=== PATIENT | male | born 1950 | race Caucasian/White ===

== ENCOUNTER 2023-01-23 12:22 | Emergency (ER) | payer OTHER, MEDICAID ==
[~2023-01-23] VITALS: Ht 152.4 cm; Wt 78.5 kg
[2023-01-23 12:56] VITALS: BP_SYST 137
[2023-01-23] MEDS ORDERED: LIDO1ADH77 TP (14:56)
[2023-01-23] MEDS ORDERED: ACET-2634 PO (14:56)
== END 2023-01-23 15:13 | disposition home or self-care (01) ==
LOC: SED 12:22
DX: M54.10 Radiculopathy, site unspecified (principal); R20.2 Paresthesia of skin; M54.2 Cervicalgia; R51.9 Headache, unspecified; Z79.899 Other long term (current) drug therapy
CPT/HCPCS: 72125-TC; 76376; 93005; 99284

== ENCOUNTER 2023-03-12 14:50 | Emergency (ER) | payer OTHER ==
[~2023-03-12] VITALS: Ht 152.4 cm; Wt 78.0 kg
[~2023-03-12 14:50] MED LIST: ACET-2634 PO; LIDO1ADH77 TP
[2023-03-12 16:14] VITALS: BP_SYST 127; PULSE 86; RESP 18; TEMP 98.2; O2SAT 97
[2023-03-12 16:57] LABS: BASOPHILS # (AUTO) 0.1 K/uL (0.0-0.2); BASOPHILS % (AUTO) 0.6 % (0.0-2.0); HEMATOCRIT 44.8 % (36-54); HEMOGLOBIN 14.5 g/dL (14.0-18.0); LYMPHOCYTES % (AUTO) 25.2 % (20.5-51.5); MEAN CORPUSCULAR HEMOGLOBIN 30 pg (27-31); MEAN CORPUSCULAR HGB CONC 32 % (32-36); MEAN CORPUSCULAR VOLUME 94 fL (79.0-98.0); MONOCYTES # (AUTO) 1.6 K/uL (0.0-1.0); MONOCYTES % (AUTO) 13.7 % (1.7-9.3); NEUTROPHILS # (AUTO) 6.3 K/uL (1.8-7.7); NEUTROPHILS % (AUTO) 52.5 % (40.0-70.0); PLATELET COUNT (AUTO) 237 K/uL (130-430); RED BLOOD CELL COUNT(AUTO) 4.79 MIL/uL (4.2-6.2); RED CELL DISTRIBUTION WIDTH 14.6 % (9.0-15.0)
[2023-03-12 17:08] LABS: ANION GAP 7 (5-15); CALCIUM 8.5 mg/dL (8.4-11.0); CHLORIDE 103 mmol/L (98-107); GLUCOSE 117 mg/dL (74-106); UREA NITROGEN, BLOOD 16 mg/dL (8-21)
[2023-03-12] MEDS ORDERED: IBUP-1971 PO (17:23)
[2023-03-12] MEDS ORDERED: CLIN-22 PO (17:23)
[2023-03-12] MEDS ORDERED: traMADol HCL HCL 50 MG TABLET (ULTRAM) PO ONE (17:30)
[2023-03-12] MEDS ORDERED: BACITRACIN 1 GM OINT TP ONE (17:30)
[2023-03-12] MEDS ORDERED: CLINDAMYCIN HCL 150 MG CAPSULE PO ONE (17:30)
[2023-03-12] MEDS ORDERED: DIPHTH,PERTUSS(ACELL),TET VAC 0.5 ML VIAL (Tdap) I.M. ONE (17:30)
[2023-03-12 17:43] LABS: ALANINE AMINOTRANSFERASE 16 U/L (12-78); ALBUMIN 2.8 g/dL (3.4-4.8); ASPARTATE AMINOTRANSFERASE 16 U/L (10-37); TOTAL BILIRUBIN 0.2 mg/dL (0.0-1.0)
[2023-03-12 18:00] VITALS: BP_SYST 134; PULSE 84; RESP 20; TEMP 98.2; O2SAT 98
== END 2023-03-12 18:00 | disposition home or self-care (01) ==
LOC: SED 14:50
DX: M70.21 Olecranon bursitis, right elbow (principal); Z79.899 Other long term (current) drug therapy; Y93.89 Activity, other specified
CPT/HCPCS: 36415; 80053; 83605; 85025; 90715; 99284

== ENCOUNTER 2023-03-15 11:22 | Emergency (ER) | payer OTHER ==
[~2023-03-15] VITALS: Ht 162.6 cm; Wt 78.0 kg
[~2023-03-15 11:22] MED LIST changes: +CLIN-22 PO; +IBUP-1971 PO
[2023-03-15 11:43] VITALS: BP_SYST 147; PULSE 85; RESP 18; TEMP 98.3; O2SAT 98
[2023-03-15 12:33] LABS: BASOPHILS % (AUTO) 0.4 % (0.0-2.0); EOSINOPHILS # (AUTO) 0.7 K/uL (0.0-0.4); EOSINOPHILS % (AUTO) 7.2 % (0.0-4.0); HEMATOCRIT 45.7 % (36-54); LYMPHOCYTES # (AUTO) 2.5 K/uL (1.0-5.5); LYMPHOCYTES % (AUTO) 24.1 % (20.5-51.5); MEAN CORPUSCULAR HEMOGLOBIN 31 pg (27-31); MEAN CORPUSCULAR HGB CONC 33 % (32-36); MEAN CORPUSCULAR VOLUME 93 fL (79.0-98.0); MONOCYTES # (AUTO) 1.2 K/uL (0.0-1.0); MONOCYTES % (AUTO) 11.9 % (1.7-9.3); NEUTROPHILS # (AUTO) 5.8 K/uL (1.8-7.7); NEUTROPHILS % (AUTO) 56.4 % (40.0-70.0); PLATELET COUNT (AUTO) 229 K/uL (130-430); RED BLOOD CELL COUNT(AUTO) 4.92 MIL/uL (4.2-6.2); RED CELL DISTRIBUTION WIDTH 14.6 % (9.0-15.0); WHITE BLOOD COUNT (AUTO) 10.4 K/uL (4.8-10.8)
[2023-03-15 12:46] LABS: ANION GAP 9 (5-15); CALCIUM 8.5 mg/dL (8.4-11.0); CHLORIDE 105 mmol/L (98-107); CREATININE 0.65 mg/dL (0.55-1.30); GLUCOSE 159 mg/dL (74-106); UREA NITROGEN, BLOOD 11 mg/dL (8-21)
[2023-03-15 13:19] LABS: ALANINE AMINOTRANSFERASE 15 U/L (12-78); ALBUMIN 2.8 g/dL (3.4-4.8); ASPARTATE AMINOTRANSFERASE 20 U/L (10-37); TOTAL BILIRUBIN 0.3 mg/dL (0.0-1.0)
[2023-03-15 14:12] VITALS: BP_SYST 147; PULSE 85; RESP 18; TEMP 98.3; O2SAT 98
== END 2023-03-15 14:10 | disposition home or self-care (01) ==
LOC: SED 11:22
DX: Z48.00 Encounter for change or removal of nonsurgical wound dressing (principal); Z79.899 Other long term (current) drug therapy
CPT/HCPCS: 36415; 80053; 83605; 85025; 99283

== ENCOUNTER 2023-03-23 12:29 | Emergency (ER) | payer OTHER ==
[~2023-03-23] VITALS: Ht 152.4 cm; Wt 78.0 kg
[2023-03-23 12:50] VITALS: BP_SYST 103; PULSE 74; RESP 20; TEMP 98.5; O2SAT 97
--- NOTE | 2023-03-23 12:59 | NUR ---
Patient to ER bed 7 for evaluation. Patient at bedside in wheelchair. Report given to ALYCIA Camacho.
--- NOTE | 2023-03-23 13:00 | NUR ---
Patient to ER bed H2 to gown for evaluation. Side rails up.
--- NOTE | 2023-03-23 13:05 | NUR ---
ER DR. TAVAREZ EXAMINING PT
[2023-03-23 13:21] LABS: BASOPHILS % (AUTO) 0.4 % (0.0-2.0); EOSINOPHILS # (AUTO) 0.9 K/uL (0.0-0.4); EOSINOPHILS % (AUTO) 8.7 % (0.0-4.0); HEMATOCRIT 44.6 % (36-54); HEMOGLOBIN 14.6 g/dL (14.0-18.0); LYMPHOCYTES # (AUTO) 2.6 K/uL (1.0-5.5); LYMPHOCYTES % (AUTO) 25.9 % (20.5-51.5); MEAN CORPUSCULAR HEMOGLOBIN 30 pg (27-31); MEAN CORPUSCULAR HGB CONC 33 % (32-36); MEAN CORPUSCULAR VOLUME 93 fL (79.0-98.0); MONOCYTES # (AUTO) 1.2 K/uL (0.0-1.0); MONOCYTES % (AUTO) 12.2 % (1.7-9.3); NEUTROPHILS # (AUTO) 5.3 K/uL (1.8-7.7); NEUTROPHILS % (AUTO) 52.8 % (40.0-70.0); PLATELET COUNT (AUTO) 224 K/uL (130-430); RED CELL DISTRIBUTION WIDTH 14.7 % (9.0-15.0); WHITE BLOOD COUNT (AUTO) 10.1 K/uL (4.8-10.8)
[2023-03-23 13:44] LABS: ANION GAP 9 (5-15); CALCIUM 8.4 mg/dL (8.4-11.0); CHLORIDE 106 mmol/L (98-107); CREATININE 0.63 mg/dL (0.55-1.30); GLUCOSE 127 mg/dL (74-106); UREA NITROGEN, BLOOD 17 mg/dL (8-21)
[2023-03-23 13:49] LABS: ALANINE AMINOTRANSFERASE 20 U/L (12-78); ALBUMIN 2.9 g/dL (3.4-4.8); ASPARTATE AMINOTRANSFERASE 23 U/L (10-37); TOTAL BILIRUBIN 0.4 mg/dL (0.0-1.0)
--- NOTE | 2023-03-23 14:25 | NUR ---
Patient given written and verbal discharge instructions and verbalizes understanding. ER MD discussed with patient the results and treatment provided. Patient in stable condition. ID arm band removed. NO Rx given. Patient educated on pain management and to follow up with PMD. Pain Scale /10. Opportunity for questions provided and answered. Medication side effect fact sheet provided.
[2023-03-23 14:26] VITALS: BP_SYST 103; PULSE 74; RESP 20; TEMP 98.5; O2SAT 97
== END 2023-03-23 14:25 | disposition home or self-care (01) ==
LOC: SED 12:29
DX: L03.113 Cellulitis of right upper limb (principal); Z79.899 Other long term (current) drug therapy
CPT/HCPCS: 36415; 80053; 83605; 85025; 99283